=== PATIENT | female | born 1995 | race Caucasian/White ===

== ENCOUNTER 2024-05-20 13:36 | Emergency (ER) | payer SELFPAY ==
[2024-05-20 13:37] VITALS: BP 137/105
[2024-05-20] MEDS: ADACEL 0.5 ML IM (14:17)
--- NOTE | 2024-05-20 14:21 | ED.GENMED ---
History of Present Illness
General
Chief Complaint: Skin Surface Trauma
Time Seen by Provider: 05/20/24 13:49
History of Present Illness
History of Present Illness:
28-year-old female presents for evaluation of right thumb laceration sustained on broken glass at work. Bleeding is controlled. Was referred from urgent care due to concern for tendon injury, last tetanus unknown
Review of Systems
Review of Systems
Allergies reviewed?: Yes
All Other Systems: ROS reviewed and negative except as documented in HPI and ROS
Phy Exam
Physical Exam
Physical Exam:
GEN: Well appearing, NAD, WDWN
HEENT: Oral mucosa moist, no scleral icterus
Cardiac: Regular rate
Lung: No respiratory distress, no tachypnea
MSK: 1.5 cm transverse laceration to the right thumb overlying the extensor surface of the proximal phalanx just distal to the MCP joint. There is a visible extensor tendon at the wound base with no obvious injury, extension at the MCP and IP
joints normal
Skin: Good color, no pallor or jaundice, no rashes
Neuro: AO x3, moves all extremities freely
Psych: Calm, cooperative
Course
Orders/Labs/Results
Orders:
Orders
05/20/24 14:08
Tetanus/Diphth/Acelpertussis [Adacel] 0.5 ml IM .ONCE ONE
Vital Signs
Initial and Last Documented VS:
Initial Vital Signs
Temp Pulse Resp BP Pulse Ox
98.3 F 119 20 137/105 99
05/20/24 13:37 05/20/24 13:37 05/20/24 13:37 05/20/24 13:37 05/20/24 13:37
Last Documented Vital Signs
Temp Pulse Resp BP Pulse Ox
98.3 F 119 20 137/105 99
05/20/24 13:37 05/20/24 13:37 05/20/24 13:37 05/20/24 13:37 05/20/24 13:37
Procedures
Laceration Closure
Left Thumb:
Status of Wound: clean
Size of Wound in cm: 1.5
Description of Wound Edges: sharp
Preparation: cleaned with saline
Anesthesia: 1% Lidocaine
Revision/Debridement: irrigate-direct pressure
Wound exploration: explored to base- no FB and no tendon involvement
Type of Closure: single layer closure
Skin Closure Material: 5-0 nylon
Number of sutures: 3
MDM/Problems Addressed
MDM/Problems Addressed:
No evidence of tendon injury, repaired bedside, tetanus updated
*Critical Care Note
Total Time (30-74mins, 75-104mins- exclusive of procedures): Not Applicable
ED Attending Note
-
Portions of this chart may have been created with voice recognition software.� Occasional wrong word or��sound alike� substitutions may have occurred due to the inherent limitations of voice recognition software.
Discharge Plan
Departure
Patient Disposition: Home (Routine Discharge)
Date of Disposition: 05/20/24
Time of Disposition: 14:21
Patient with high blood pressure during this ER visit?: No
Discharge Problem:
Laceration of right thumb
Instructions: Laceration Repair With Stitches (DC)
Referrals:
Jono Ibrahim MD [Family Provider] -
Activity Restrictions/Additional Instructions:
Suture removal in 10 days
Interventions
Interventions:
*Risk Screen - Suicide Last Done: 05/20/24 13:37
*General Assessment Last Done: 05/20/24 13:37
*Neglect/Abuse Screening Last Done: 05/20/24 13:37
ED- Fall Risk Assessment Last Done: 05/20/24 13:58
*ED COVID-19 Vaccine History Last Done: 05/20/24 13:37
*Nursing Disposition Last Done: 05/20/24 14:29
ED-Skin Assessment Last Done: 05/20/24 13:58
Discharge Date and Time
Discharge Date/Time: 05/20/24 14:29
Print Language: SWEDISH
== END 2024-05-20 14:29 | disposition home or self-care (01) ==
LOC: EMR 13:36
PROVIDERS: EMERGENCY PHYSICIAN Student in an Organized Health Care Education/Training Program; FAMILY PHYSICIAN Internal Medicine Pulmonary Disease
DX: S61.011A Laceration without foreign body of right thumb without damage to nail, initial encounter (principal); W25.XXXA Contact with sharp glass, initial encounter; Z23 Encounter for immunization
CPT/HCPCS: 12001; 90471; 99282; 90715